=== PATIENT | female | born 2000 | race Caucasian/White ===

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

== ENCOUNTER 2023-10-25 00:19 | Emergency (ER) | payer OTHER ==
[~2023-10-25] VITALS: Ht 165.1 cm; Wt 94.0 kg
[~2023-10-25 00:19] MED LIST changes: +PROZAC10 MG PO
[2023-10-25] MEDS ORDERED: DiphenhydrAMINE HCL 50 MG/ML SDV IV STA (00:40)
[2023-10-25] MEDS ORDERED: FAMOTIDINE 10MG/ML 2ML SDV IV STA (00:40)
[2023-10-25] MEDS ORDERED: methylPREDNISolone SODIUM SUCC 125 MG/2 ML SDV IV STA (00:40)
[2023-10-25] MEDS ORDERED: PREDNISONE50 MG PO (01:59)
[2023-10-25 02:10] VITALS: BP 132/86
== END 2023-10-25 02:11 | disposition home or self-care (01) | DRG 607 ==
LOC: ED 00:19
DX: L27.1 Localized skin eruption due to drugs and medicaments taken internally (principal); T45.2X5A Adverse effect of vitamins, initial encounter; F41.9 Anxiety disorder, unspecified; F32.A Depression, unspecified; Z72.0 Tobacco use